=== PATIENT | female | born 1950 | race Caucasian/White ===

== ENCOUNTER → 2017-03-31 | Outpatient (CLI) | payer MEDICARE, MEDICAID ==
--- NOTE | 2017-03-31 14:31 | WOMENS IMAGING REPORT ---
EXAM DESCRIPTION: TRANSVAGINAL ULTRASOUND COMPLETED DATE/TIME: 03/31/2017 2:06 pm REASON FOR STUDY: N95.0 Z12.31 ENCNTR SCREEN MAMMOGRAM FOR MALIGNANT NEOPLASM OF SELENA M81.0 AGE-REL ATED OSTEOPOROSIS W/O CURRENT PATHOLOGICAL FRAC N95.0 POSTMENOPAUSAL BLEEDING COMPARISON: None. TECHNIQUE: Dynamic and static grayscale images acquired of the pelvis via transvaginal approach and recorded on PACS. Additional selected color Doppler and spectral images recorded. LIMITATIONS: None. FINDINGS: UTERUS: Contour normal. No mass. ENDOMETRIAL STRIPE: No focal or generalized thickening. No masses. CERVIX: No nabothian cysts. RIGHT OVARY: No abnormal masses. RIGHT OVARY DOPPLER: Normal arterial vascular flow without evidence for torsion. LEFT OVARY: No abnormal masses. LEFT OVARY DOPPLER: Normal arterial vascular flow without evidence for torsion. FREE FLUID: None noted. OTHER: No other significant finding. MEASUREMENTS: UTERUS: 2.8 x 4.1 x 5.6 cm. ENDOMETRIAL STRIPE: 2 mm. RIGHT OVARY: 1.9 x 2.5 x 2.9 cm. LEFT OVARY: 1.7 x 1.7 x 2.3 cm. IMPRESSION: NORMAL TRANSVAGINAL PELVIC ULTRASOUND. TECHNICAL DOCUMENTATION: JOB ID: [id number] [employer]- All Rights Reserved
--- NOTE | 2017-03-31 14:32 | WOMENS IMAGING REPORT ---
EXAM DESCRIPTION: BONE DENSITY HIP/SPINE COMPLETED DATE/TIME: 03/31/2017 2:08 pm REASON FOR STUDY: M81.0 Z12.31 ENCNTR SCREEN MAMMOGRAM FOR MALIGNANT NEOPLASM OF SELENA M81.0 AGE-REL ATED OSTEOPOROSIS W/O CURRENT PATHOLOGICAL FRAC N95.0 POSTMENOPAUSAL BLEEDING COMPARISON: None. TECHNIQUE: Dual-Energy X-ray Absorptiometry (DEXA) of the AP Spine and Hip. LIMITATIONS: None. FINDINGS: LUMBAR SPINE: The bone mineral density (BMD) measured from L1-L4 in the AP projection correlates with a T-score of -3.8, which is osteoporosis as defined by the World Health Organization. HIP: The bone mineral density (BMD) measured in the left hip correlates with a T-score of -3.2, which is o steoporosis as defined by the World Health Organization. IMPRESSION: 1. LUMBAR SPINE: OSTEOPOROSIS. 2. HIP: OSTEOPOROSIS. COMMENT: The World Health Organization defines low BMD as follows: T-score: Normal: Greater than -1.0 Osteopenia: Between -1.0 and -2.5 Osteoporosis: Less than -2.5 without fractures Established osteoporosis: Less than -2.5 with fractures In general, you may wish to consider: Diagnosis Treatment Follow-up DEXA Normal BMD Prevention 2-3 years Osteopenia Prevention/Therapy 1-2 years Osteoporosis Therapy Yearly TECHNICAL DOCUMENTATION: JOB ID: [id number] [email or web address]- All Rights Reserved
--- NOTE | 2017-03-31 14:45 | WOMENS IMAGING REPORT ---
EXAM DESCRIPTION: BILAT SCREENING MAMMO W/CAD COMPLETED DATE/TIME: 03/31/2017 2:09 pm REASON FOR STUDY: Z12.31, ROUTINE SCREENING MAMMO Z12.31 ENCNTR SCREEN MAMMOGRAM FOR MALIGNANT NEOP LASM OF SELENA M81.0 AGE-RELATED OSTEOPOROSIS W/O CURRENT PATHOLOGICAL FRAC N95.0 POSTMENOPAUSAL BLEED ING COMPARISON: None. TECHNIQUE: Standard craniocaudal and mediolateral oblique views of each breast recorded using digita l acquisition. LIMITATIONS: None. FINDINGS: No masses, calcifications or architectural distortion. No areas of suspicion. Read with the assistance of CAD. .[facility] - R2 Cenova Version 1.3 .[facility] - R2 Cenova Version 1.3 .[facility] - R2 Cenova Version 2.4 .[facility] [place] R2 Cenova Version 2.4 .[facility] - R2 [employer] Version 9.2 IMPRESSION: NORMAL MAMMOGRAM. BIRADS 1. BREAST DENSITY: c. The breasts are heterogeneously dense, which may obscure small masses. BIRAD: 1 NEGATIVE RECOMMENDATION: ROUTINE SCREENING COMMENT: The patient has been notified of the results by letter per SA requirements. Additional no tification policies are in place for contacting patient with suspicious or incomplete findings. Quality ID #[id number]: The [employer] recommends an annual screening mammogram for women aged 40 years or over. This facility utilizes a reminder system to ensure that all patients receive reminder letters, and/or direct phone calls for appointments. This includes reminders for routine scr eening mammograms, diagnostic mammograms, or other Breast Imaging Interventions when appropriate. Th is patient will be placed in the appropriate reminder system. The [employer] (ACR) has developed recommendations for screening MRI of the breast s in certain patient populations, to be used in conjunction with mammography. Breast MRI surveillanc e may be appropriate for women with more than 20% lifetime risk of developing breast cancer as deter mined by genetic testing, significant family history of the disease, or history of mantle radiation f or Hodgkins Disease. ACR Practice Guidelines 2008. TECHNICAL DOCUMENTATION: FINDING NUMBER: (1) ASSESSMENT: (1) JOB ID: [id number] [employer]- All Rights Reserved
== END ==
LOC: WI 13:56
PROVIDERS: ATTEND Physician Assistant
DX: Z12.31 Encounter for screening mammogram for malignant neoplasm of breast (principal); M81.0 Age-related osteoporosis without current pathological fracture; N95.0 Postmenopausal bleeding
CPT/HCPCS: 77080; 76830; G0202; 77067

== ENCOUNTER 2018-12-02 01:17 | Emergency (ER) | payer MEDICARE, OTHER ==
[2018-12-02] MEDS ORDERED: NORMAL SALINE 1000 ML 1,000 ML IV ONE (02:08)
[2018-12-02 04:03] LABS: ABSOLUTE LYMPHOCYTES (AUTO) 0.2 10^3/uL (0.5-4.7); ABSOLUTE MONOCYTES (AUTO) 0.4 10^3/uL (0.1-1.4); ABSOLUTE NEUT (AUTO) 3.1 10^3/uL (1.7-8.2); BASOPHILS % (AUTO) 0.1 % (0-2); EOSINOPHILS % (AUTO) 0.1 % (0-6); HEMATOCRIT 39.4 % (36.0-47.0); HEMOGLOBIN 13.9 g/dL (12.0-15.5); LYMPHOCYTES % (AUTO) 5.2 % (13-45); MEAN CORPUSCULAR HEMOGLOBIN 34.9 pg (27.0-33.4); MEAN CORPUSCULAR HGB CONC 35.1 g/dL (32.0-36.0); MEAN CORPUSCULAR VOLUME 99 fl (80-97); MONOCYTES % (AUTO) 11.4 % (3-13); PLATELET COUNT 166 10^3/uL (150-450); RED BLOOD COUNT 3.97 10^6/uL (3.72-5.28); SEGMENTED NEUTROPHILS % (AUTO) 83.2 % (42-78); TOTAL CELLS COUNTED % (AUTO) 100 %; WHITE BLOOD COUNT 3.8 10^3/uL (4.0-10.5)
[2018-12-02] MEDS ORDERED: ONDANSETRON HCL INJ/PF 4 MG/2 ML SDV IV ONE (04:22)
[2018-12-02] MEDS ORDERED: ACETAMINOPHEN SUSP 160 MG/5 ML ORAL SYRING PO ONE (04:23)
[2018-12-02] MEDS ORDERED: KETOROLAC TROMETHAMINE INJ/PF 30 MG/1 ML SDV IV ONE (04:26)
--- NOTE | 2018-12-02 04:26 | ER Document Report ---
ED GI/ - General Chief Complaint: Nausea/Vomiting/Diarrhea Stated Complaint: NAUSEA Time Seen by Provider: 12/02/18 04:08 Primary Care Provider: JOHN TAYLOR PA [PHYSICIAN SUPERVISOR ENGRAVING] - Follow up as needed TRAVEL OUTSIDE OF THE [place] IN LAST 30 DAYS: No - HPI Notes: 12/02/18 04:23 Patient is a 68-year-old female that presents to the emergency department for chief complaint of nausea vomiting diarrhea and headache. Patient reports symptoms started yesterday. She reports multiple episodes of vomiting and diarrhea throughout today. She denies any associated abdominal pa in. She states she has been getting sweats and chills but has not taken her temperature. She denies any urinary complaints including dysuria and urinary frequency. 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 She is not on any active chemotherapy. She also endorses a generalized throbbing headache with no aggravating or relieving factors. She took Ultram about 1 hour ago with no relief. Past Medical History: Bone marrow cancer Past Surgical History: Lung tumor removal Social History: Denies drugs alcohol and tobacco Family History: Reviewed and noncontributory for presenting illness Allergies: Reviewed, see documented allergy list. REVIEW OF SYSTEMS: CONSTITUTIONAL : No fever chills diaphoresis No recent illness EENT: No vision changes No congestion No sore throat CARDIOVASCULAR: No chest pain No palpitations RESPIRATORY: No shortness of breath No cough No difficulty breathing GASTROINTESTINAL: no abdominal pain nausea vomiting diarrhea GENITOURINARY: No dysuria No hematuria No difficulty urinating MUSCULOSKELETAL: No back pain No leg pain No arm pain SKIN: No rashes No lesions LYMPHATIC: No swollen, enlarged glands. NEUROLOGICAL: No lightheadedness No headache No weakness No paresthesias PSYCHIATRIC: No anxiety No depression PHYSICAL EXAMINATION: Vital signs reviewed, nursing noted reviewed. GENERAL: Well-appearing, thin stature and in no acute distress. HEAD: Atraumatic, normocephalic. EYES: Eyes appear normal, extraocular movements intact, sclera anicteric, con junctiva are normal. ENT: nares patent, oropharynx clear without exudates. Dry mucous membranes. NECK: Normal range of motion, supple without lymphadenopathy LUNGS: Breath sounds clear to auscultation bilaterally and equal. No wheezes rales or rhonchi. HEART: Regular rate and rhythm without murmurs ABDOMEN: Soft, nontender, normoactive bowel sounds. No rebound, guarding, or rigidity. No masses appreciated. EXTREMITIES: Nontender, good range of motion, no pitting or edema. NEUROLOGICAL: No focal neurological deficits. Moves all extremities spontaneously Motor and sensory grossly intact on exam. PSYCH: Normal mood, normal affect. SKIN: Warm, Dry, normal turgor, no rashes or lesions noted on exposed skin 12/02/18 04:24 - Related Data Allergies/Adverse Reactions: No Known Allergies Allergy (Verified 12/02/18 04:25) Past Medical History - Social History Smoking Status: Never Smoker Family History: Reviewed & Not Pertinent Physical Exam - Vital signs Vitals: Temp Pulse Resp BP Pulse Ox 97.9 F 78 16 96/51 L 97 12/02/18 01:18 12/02/18 01:18 12/02/18 01:18 12/02/18 01:18 12/02/18 01:18 Course - Re-evaluation Re-evalutation: 12/02/18 04:26 Vitals reviewed. Nursing notes reviewed. Patient has dry mucous membranes and appears dehydrated. She was started on IV fluids and given Zofran and Toradol for symptomatic management. 12/02/18 05:22 Patient reevaluated. She states she has had some improvement of her symptoms. She has not had any emesis in the last 6 hours. She has not had any diarrhea in the emergency room. Patient has remained hemodynamically stable and afebrile. Her lab work shows a mild leukopenia at 3.8 but is otherwise unremarkable. She has no other Sirs criteria or signs of infection. She states she is not able to give us a urine sample but is not concerned about a urinary tract infection. Patient symptoms are consistent with viral gastroenteritis. I counseled her at length on hydration as well as return precautions. She will be given a pre scription for Zofran for symptomatic management at home. She will follow closely with her primary care doctor for reevaluation in the next few days. Laboratory 12/02/18 12/02/18 03:48 03:48 WBC 3.8 L RBC 3.97 Hgb 13.9 Hct 39.4 MCV 99 H MCH 34.9 H MCHC 35.1 RDW 12.0 Plt Count 166 Seg Neutrophils % 83.2 H Lymphocytes % 5.2 L Monocytes % 11.4 Eosinophils % 0.1 Basophils % 0.1 Absolute Neutrophils 3.1 Absolute Lymphocytes 0.2 L Absolute Monocytes 0.4 Absolute Eosinophils 0.0 Absolute Basophils 0.0 Sodium 139.9 Potassium 4.3 Chloride 104 Carbon Dioxide 27 Anion Gap 9 BUN 14 Creatinine 0.54 Est GFR ( Amer) > 60 Est GFR (Non-Af Amer) > 60 Glucose 116 H Calcium 9.0 Total Bilirubin 0.4 Direct Bilirubin 0.2 Neonat Total Bilirubin Not Reportable Neonat Direct Bilirubin Not Reportable Neonat Indirect Bili Not Reportable AST 35 ALT 27 Alkaline Phosphatase 43 Total Protein 6.9 Albumin 4.4 Lipase 63.1 - Vital Signs Vital signs: Temp Pulse Resp BP Pulse Ox 97.8 F 78 16 96/51 L 97 12/02/18 04:42 12/02/18 04:01 12/02/18 01:18 12/02/18 01:18 12/02/18 01:18 - Laboratory Result Diagrams: 12/02/18 03:48 12/02/18 03:48 Laboratory results interpreted by me: 12/02/18 12/02/18 03:48 03:48 WBC 3.8 L MCV 99 H MCH 34.9 H Seg Neutrophils % 83.2 H Lymphocytes % 5.2 L Absolute Lymphocytes 0.2 L Glucose 116 H Discharge - Discharge Clinical Impression: Nausea and vomiting Qualifiers: Vomiting type: unspecified Vomiting Intractability: non-intractable Qualified Code(s): R11.2 - Nausea with vomiting, unspecified Diarrhea Qualifiers: Diarrhea type: unspecified type Qualified Code(s): R19.7 - Diarrhea, uns pecified Condition: Stable Disposition: HOME, SELF-CARE Instructions: Gastroenteritis (adult) ([facility]) Additional Instructions: Please return to the emergency department if you have any worsening, or concern of your symptoms. Please return to the emergency department if you develop chest pain, difficulty breathing, severe abdominal pain, or ongoing vomiting. Please follow-up with your primary care physician in 2-3 days and any other recommended physicians. If prescribed, take all medications as directed. If you have any questions or concerns do not hesitate to return the emergency department for evaluation. Prescriptions: Ondansetron [Zofran Odt 4 mg Tablet] 1 tab PO Q4H PRN #15 tab.rapdis PRN Reason: For Nausea/Vomiting Referrals: JOHN TAYLOR PA [PHYSICIAN SUPERVISOR ENGRAVING] - Follow up in 3-5 days
[2018-12-02 04:34] LABS: ALANINE AMINOTRANSFERASE 27 U/L (9-52); ALBUMIN 4.4 g/dL (3.5-5.0); ALKALINE PHOSPHATASE 43 U/L (38-126); ANION GAP 9 (5-19); ASPARTATE AMINO TRANSFERASE 35 U/L (14-36); BILIRUBIN,DIRECT 0.2 mg/dL (0.0-0.4); BILIRUBIN,TOTAL 0.4 mg/dL (0.2-1.3); BLOOD UREA NITROGEN 14 mg/dL (7-20); CARBON DIOXIDE 27 mmol/L (22-30); CHLORIDE 104 mmol/L (98-107); GLUCOSE 116 mg/dL (75-110); LIPASE 63.1 U/L (23-300); POTASSIUM 4.3 mmol/L (3.6-5.0); SODIUM 139.9 mmol/L (137-145); TOTAL PROTEIN 6.9 g/dL (6.3-8.2)
[2018-12-02] MEDS ORDERED: ACETAMINOPHEN 325 MG TABLET PO ONE (05:20)
[2018-12-02] MEDS ORDERED: PROMETHAZINE HCL INJ 25 MG/1 ML VIAL IV ONE (05:20)
[2018-12-02 06:08] VITALS: BP 96/73
== END 2018-12-02 06:22 | disposition home or self-care (01) ==
LOC: ER 01:17
DX: R11.2 Nausea with vomiting, unspecified (principal); R19.7 Diarrhea, unspecified; R51 Headache; R61 Generalized hyperhidrosis; R68.83 Chills (without fever); D72.829 Elevated white blood cell count, unspecified; Z85.830 Personal history of malignant neoplasm of bone
CPT/HCPCS: 99283; 96361; 96374; 96375; 36415; 83690; 85025; 80053; A9270; J1885; J2550; J2405; J7030

== ENCOUNTER → 2019-04-06 | Outpatient (CLI) | payer MEDICARE, OTHER ==
--- NOTE | 2019-04-06 14:12 | WOMENS IMAGING REPORT ---
EXAM DESCRIPTION: BONE DENSITY HIP/SPINE COMPLETED DATE/TIME: 04/06/2019 2:04 pm REASON FOR STUDY: M81.0 AGE RELATED OSTEOPOROSIS WITHOUT CURRENT PATHOLOGICAL FRACTURE M81.0 AGE-RE LATED OSTEOPOROSIS W/O CURRENT PATHOLOGICAL FRAC COMPARISON: 03/31/2017 TECHNIQUE: Dual-Energy X-ray Absorptiometry (DEXA) of the AP Spine and Hip. LIMITATIONS: None. FINDINGS: LUMBAR SPINE: The bone mineral density (BMD) measured from L1-L4 in the AP projection correlates with a T-score of -2.9, which is osteoporosis as defined by the World Health Organization. HIP: The bone mineral density (BMD) measured in the left hip correlates with a T-score of -2.8 in the femo ral neck, which is osteoporosis as defined by the World Health Organization. IMPRESSION: 1. LUMBAR SPINE: Osteoporosis 2. HIP: Osteoporosis COMMENT: The World Health Organization defines low BMD as follows: T-score: Normal: Greater than -1.0 Osteopenia: Between -1.0 and -2.5 Osteoporosis: Less than -2.5 without fractures Established osteoporosis: Less than -2.5 with fractures In general, you may wish to consider: Diagnosis Treatment Follow-up DEXA Normal BMD Prevention 2-3 years Osteopenia Prevention/Therapy 1-2 years Osteoporosis Therapy Yearly TECHNICAL DOCUMENTATION: JOB ID: [id number]- All Rights Reserved Reading location - IP/workstation name: [email or web address]
== END ==
LOC: WI 13:45
PROVIDERS: ATTEND Physician Assistant
DX: M81.0 Age-related osteoporosis without current pathological fracture (principal)
CPT/HCPCS: 77080

== ENCOUNTER → 2019-12-01 | Outpatient (CLI) | payer MEDICARE, OTHER ==
--- NOTE | 2019-12-02 11:39 | WOMENS IMAGING REPORT ---
EXAM DESCRIPTION: 3D SCREENING MAMMO BILAT COMPLETED DATE/TIME: 12/02/2019 11:14 am REASON FOR STUDY: Z12.31 ENCOUNTER FOR SCREENING MAMMOGRAM FOR MALIGNANT NEOPLASM OF BREAST Z12.31 ENCNTR SCREEN MAMMOGRAM FOR MALIGNANT NEOPLASM OF SELENA COMPARISON: 2016 EXAM PARAMETERS: Views: Standard craniocaudal and mediolateral oblique views of each breast recorded using digital acquisition and breast tomosynthesis. Read with the assistance of CAD. .COUNT INCLUDES THE [facility] [place] [employer] Version 9.2 LIMITATIONS: None. FINDINGS: No suspicious masses, suspicious calcifications or architectural distortion. No areas of c oncern. IMPRESSION: NEGATIVE MAMMOGRAM. BIRADS 1. BREAST DENSITY: b. There are scattered areas of fibroglandular density. BIRAD: ASSESSMENT: 1 NEGATIVE RECOMMENDATION: ROUTINE SCREENING COMMENT: The patient has been notified of the results by letter per MQSA requirements. Additional no tification policies are in place for contacting patient with suspicious or incomplete findings. Quality ID #225: The [employer] recommends an annual screening mammogram for women aged 40 years or over. This facility utilizes a reminder system to ensure that all patients receive reminder letters, and/or direct phone calls for appointments. This includes reminders for routine scr eening mammograms, diagnostic mammograms, or other Breast Imaging Interventions when appropriate. Th is patient will be placed in the appropriate reminder system. TECHNICAL DOCUMENTATION: FINDING NUMBER: (1) ASSESSMENT: (1) JOB ID: [id number] 2010 [employer]- All Rights Reserved Reading location - IP/workstation name: [email or web address]
== END ==
LOC: WI 13:34
PROVIDERS: ATTEND Physician Assistant
DX: Z12.31 Encounter for screening mammogram for malignant neoplasm of breast (principal)
CPT/HCPCS: 77063; 77067

== ENCOUNTER 2020-06-15 16:36 | Observation (INO) | payer MEDICARE, OTHER ==
--- NOTE | 2020-06-15 17:02 | ER Document Report ---
ED General - General Chief Complaint: Altered Mental Status Stated Complaint: AMS Time Seen by Provider: 06/15/20 16:47 Primary Care Provider: HOLLY SAL PA [NO LOCAL MD] - Follow up as needed Information source: Emergency Med Personnel Cannot obtain history due to: Altered mental status TRAVEL OUTSIDE OF THE [place] IN LAST 30 DAYS: No - HPI Notes: Patient presents from the pain management clinic. Per EMS, she was sent over for tachycardia and increased confusion from baseline according to the nurse practitioner there. Patient is uncooperative with questioning. I am unable to obtain a further history. She appears confused and can not tell me where she is but is oriented to person and time. - Related Data Allergies/Adverse Reactions: No Known Allergies Allergy (Verified 12/02/18 04:25) Past Medical History - General Cannot obtain history due to: Altered mental status - Social History Smoking Status: Unknown if Ever Smoked Family History: Reviewed & Not Pertinent Renal/ Medical History: Denies: Hx Peritoneal Dialysis Review of Systems - Review of Systems -: Yes ROS unobtainable due to patient's medical condition Physical Exam - Vital signs Vitals: Temp Pulse Resp BP Pulse Ox 99.0 F 94 14 121/75 100 06/15/20 17:25 06/15/20 17:25 06/15/20 17:25 06/15/20 17:25 06/15/20 17:25 - General General appearance: Alert, Other - Alert but will not respond to questioning. Will follow simple commands. In distress: None - HEENT Head: Normocephalic, Atraumatic Eyes: Normal Conjunctiva: Normal Ears: Normal Mucous membranes: Dry Neck: Normal - Respiratory Respiratory status: No respiratory distress. No: Respiratory distress, Retractions, Tachypnea Breath sounds: Normal. No: Decreased air movement, Wheezing Chest palpation: Normal - Cardiovascular Rhythm: Regular Heart sounds: Normal auscultation - Abdominal Inspection: Normal Distension: No distension Tenderness: No: Nontender - Back Back: Normal Notes: No step offs palpated. No lesions. States she has chronic pain in the lower back which is not new. - Extremities General upper extremity: Normal inspection General lower extremity: Normal inspection Notes: Patient moves all extremites. - Neurological Orientation: Disoriented to place Speech: Normal - Psychological Associated symptoms: Restlessness, Uncooperative - Skin Skin Temperature: Warm Skin Moisture: Dry Skin Color: Normal Course - Re-evaluation Re-evalutation: 06/15/20 17:12 Patient uncooperative with questioning. She is able to tell me her name and what year it is. Patient is able to move her extremities. Nurse reports that patient was sitting on the edge of the bed and then leaned forward onto the ground. She tried to get up by herself but could not. States that she drives a car but does not always ambulate. It is difficult to obtain a history from her as she seems to be confused. On reassessment, patient is becoming more cooperative and answering questions. The confusion seems to be intermittent. She does appear to be very fatigued. Patient states she has not been sleeping well. She tells me that she lives at home with her who is currently out of town. She does think she has any sick symptoms. Denies taking any extra medicines. From record, she takes gabapentin and tramadol. She does not think that she took more doses than appropriate. Her lab work is significant for dehydration. Was given fluids. I did discuss with the hospitalist for admission for altered mental status and he was in agreement. Patient is also agreeable to this. 06/15/20 19:11ll 06/15/20 19:29 06/15/20 20:14 - Vital Signs Vital signs: Temp Pulse Resp BP Pulse Ox 99.0 F 94 14 121/75 100 06/15/20 17:25 06/15/20 18:00 06/15/20 18:00 06/15/20 18:00 06/15/20 18:00 - Laboratory Result Diagrams: 06/15/20 17:37 06/15/20 17:37 Laboratory results interpreted by me: 06/15/20 06/15/20 06/15/20 17:37 17:37 18:48 WBC 3.5 L MCV 99 H MCH 34.6 H Dupage % (Auto) 17.2 H Carbon Dioxide 12 L Anion Gap 23 H Calcium 10.3 H AST 37 H Albumin 5.2 H Urine Protein 100 H Urine Ketones 80 H Urine Blood SMALL H Leukocyte Esterase Rfl MODERATE H - EKG Interpretation by [place] EKG shows normal: Sinus rhythm Rate: Normal When compared to previous EKG there are: Previous EKG unavailable Additional EKG results interpreted by me: 06/15/20 17:41 Sinus rhythm at a rate of 95. QTc 423. Possible LVH. No acute ST changes. No previous EKG available for comparison. Discharge - Discharge Clinical Impression: Dehydration Altered mental status Qualifiers: Altered mental status type: unspecified Qualified Code(s): R41.82 - Altered mental status, unspecified Condition: Fair Disposition: ADMITTED OBSERVATION Admitting Provider: Paulette (Hospitalist) Unit Admitted: Medical Floor Referrals: HOLLY SAL PA [NO LOCAL MD] - Follow up as needed
--- NOTE | 2020-06-15 17:38 | RADIOLOGY REPORT (SQ) ---
EXAM DESCRIPTION: CHEST SINGLE VIEW IMAGES COMPLETED DATE/TIME: 06/15/2020 5:23 pm REASON FOR STUDY: tachycardia COMPARISON: None. EXAM PARAMETERS: NUMBER OF VIEWS: One view. TECHNIQUE: Single frontal radiographic view of the chest acquired. RADIATION DOSE: NA LIMITATIONS: None. FINDINGS: LUNGS AND PLEURA: Hyperexpansion of the lungs. Cannot exclude 2 right upper lobe pulmonar y nodules. The larger measures about 3 x 2 cm and the smaller 2 cm in diameter. MEDIASTINUM AND HILAR STRUCTURES: No masses. Contour normal. HEART AND VASCULAR STRUCTURES: Heart normal in size. Normal vasculature. BONES: No acute findings. HARDWARE: Injection port on the right. OTHER: No other significant finding. IMPRESSION: Chronic lung changes. Cannot exclude 2 right upper lobe pulmonary nodules. Recommend C T scan with contrast. TECHNICAL DOCUMENTATION: JOB ID: [id number] 2010 [employer]- All Rights Reserved Reading location - IP/workstation name: [email or web address]
[2020-06-15 18:02] LABS: ABSOLUTE LYMPHOCYTES (AUTO) 0.7 10^3/uL (0.5-4.7); ABSOLUTE MONOCYTES (AUTO) 0.6 10^3/uL (0.1-1.4); ABSOLUTE NEUT (AUTO) 2.2 10^3/uL (1.7-8.2); BASOPHILS % (AUTO) 0.7 % (0-2); EOSINOPHILS % (AUTO) 0.2 % (0-6); HEMOGLOBIN 15.3 g/dL (12.0-15.5); LYMPHOCYTES % (AUTO) 20.1 % (13-45); MEAN CORPUSCULAR HEMOGLOBIN 34.6 pg (27.0-33.4); MEAN CORPUSCULAR HGB CONC 34.9 g/dL (32.0-36.0); MEAN CORPUSCULAR VOLUME 99 fl (80-97); MONOCYTES % (AUTO) 17.2 % (3-13); PLATELET COUNT 219 10^3/uL (150-450); RED BLOOD COUNT 4.43 10^6/uL (3.72-5.28); RED CELL DISTRIBUTION WIDTH 12.7 % (11.5-14.0); SEGMENTED NEUTROPHILS % (AUTO) 61.8 % (42-78); TOTAL CELLS COUNTED % (AUTO) 100 %; WHITE BLOOD COUNT 3.5 10^3/uL (4.0-10.5)
[2020-06-15 18:09] LABS: ALBUMIN 5.2 g/dL (3.5-5.0); ALKALINE PHOSPHATASE 51 U/L (38-126); ASPARTATE AMINO TRANSFERASE 37 U/L (14-36); BILIRUBIN,DIRECT 0.3 mg/dL (0.0-0.4); BILIRUBIN,TOTAL 1.1 mg/dL (0.2-1.3); BLOOD UREA NITROGEN 19 mg/dL (7-20); CALCIUM 10.3 mg/dL (8.4-10.2); GLUCOSE 79 mg/dL (75-110); POTASSIUM 4.3 mmol/L (3.6-5.0); TOTAL PROTEIN 8.1 g/dL (6.3-8.2)
[2020-06-15 18:14] LABS: CARBON DIOXIDE 12 mmol/L (22-30); CHLORIDE 107 mmol/L (98-107)
[2020-06-15 18:18] LABS: ANION GAP 23 (5-19)
[2020-06-15] MEDS ORDERED: NORMAL SALINE 1000 ML 1,000 ML IV ONE (18:27)
--- NOTE | 2020-06-15 18:28 | RADIOLOGY REPORT (SQ) ---
EXAM DESCRIPTION: CT HEAD WITHOUT IMAGES COMPLETED DATE/TIME: 06/15/2020 5:00 pm REASON FOR STUDY: AMS COMPARISON: None. TECHNIQUE: Axial images acquired through the brain without intravenous contrast. Images reviewed wi th bone, brain and subdural windows. Additional sagittal and coronal reconstructions were generated. Images stored on PACS. All CT scanners at this facility use dose modulation, iterative reconstruction, and/or weight based d osing when appropriate to reduce radiation dose to as low as reasonably achievable (ALARA). [facility]: Dose Right [facility]: CareDose [facility]: Dose Right [facility]: Teradose 4D [facility]: Fluentify RADIATION DOSE: CT Rad equipment meets quality standard of care and radiation dose reduction techniq ues were employed. CTDIvol: 53.2 mGy. DLP: 1070 mGy-cm. mGy. LIMITATIONS: None. FINDINGS: VENTRICLES: Normal size and contour. CEREBRUM: No masses. No hemorrhage. No midline shift. No evidence for acute infarction. Normal gra y-white matter differentiation. There is intracranial atherosclerosis. CEREBELLUM: No masses. No hemorrhage. No alteration of density. No evidence for acute infarction. EXTRAAXIAL SPACES: No fluid collections. No masses. ORBITS AND GLOBE: No intra- or extraconal masses. Normal contour of globe without masses. CALVARIUM: No fracture. PARANASAL SINUSES: No fluid or mucosal thickening. SOFT TISSUES: No mass or hematoma. OTHER: No other significant finding. IMPRESSION: No acute intracranial hemorrhage, mass, or evidence of acute territorial infarct. There is intracranial atherosclerosis. EVIDENCE OF ACUTE STROKE: NO. COMMENT: Quality ID # [id number]: Final reports with documentation of one or more dose reduction techniques (e.g., Automated exposure control, adjustment of the mA and/or kV according to patient size, use of iterative reconstruction technique) TECHNICAL DOCUMENTATION: JOB ID: [id number] 2010 [employer]- All Rights Reserved Reading location - IP/workstation name: [email or web address]
[2020-06-15] MEDS ORDERED: ACETAMINOPHEN 325 MG TABLET PO ONE (18:32)
[2020-06-15 19:19] LABS: APPEARANCE,URINE SLIGHTLY-CLOUDY; BILIRUBIN,URINE NEGATIVE (NEGATIVE); COLOR,URINE YELLOW; GLUCOSE, URINE NEGATIVE (NEGATIVE); KETONES,URINE 80 mg/dL (NEGATIVE); PROTEIN,URINE 100 mg/dL (NEGATIVE); URINE SPECIFIC GRAVITY 1.023; UROBILINOGEN,URINE NEGATIVE mg/dL (<2.0)
[2020-06-15] MEDS ORDERED: MAGNESIUM HYDROXIDE SUSP 30 ML UDCUP PO PRN (20:15)
[2020-06-15] MEDS ORDERED: ONDANSETRON HCL INJ/PF 4 MG/2 ML SDV IV PRN (20:15)
[2020-06-15] MEDS ORDERED: MAG HYDROX/AL HYDROX/SIMETH SUSP 30 ML UDCUP PO PRN (20:15)
[2020-06-15] MEDS ORDERED: MORPHINE SULFATE 10 MG/ML INJ IV PRN ×4 (20:19→20:25)
[2020-06-15] MEDS ORDERED: LORAZEPAM INJ 2 MG/1 ML VIAL IV PRN (20:19)
[2020-06-15] MEDS ORDERED: ACETAMINOPHEN 325 MG TABLET PO PRN (20:19)
[2020-06-15] MEDS ORDERED: GUAIFENESIN SYRP 200 MG/10 ML UDC PO PRN (20:19)
[2020-06-15] MEDS ORDERED: ACETAMINOPHEN 650 MG SUPP.RECT PR PRN (20:19)
--- NOTE | 2020-06-15 20:27 | EKG REPORT ---
SEVERITY:- ABNORMAL ECG - SINUS RHYTHM LEFT ATRIAL ABNORMALITY PROBABLE LEFT VENTRICULAR HYPERTROPHY NONSPECIFIC ST-T CHANGES- INFERIOR LEADS : Confirmed by: Qamar Richards MD 15-Jun-2020 20:26:25
[2020-06-15] MEDS: DEXTROSE 5%-LACTATED RINGERS 1,000 ML IV PRN (20:58)
[2020-06-15] MEDS ORDERED: FAMOTIDINE 20 MG TABLET PO SCH (22:00)
[2020-06-15 22:07] LABS: ARTERIAL BLOOD BASE EXCESS -13.5 mmol/L; ARTERIAL BLOOD FIO2 ROOM AIR; ARTERIAL BLOOD H2CO3 0.92 mmol/L (1.05-1.35); ARTERIAL BLOOD HCO3 12.7 mmol/L (20-24); ARTERIAL BLOOD O2 SATURATION 96.5 % (94-98); ARTERIAL BLOOD PCO2 30.6 mmHg (35-45); ARTERIAL BLOOD PH 7.24 (7.35-7.45); ARTERIAL BLOOD TOTAL CO2 13.6 mmol/L (21-25)
[2020-06-15 22:23] LABS: CREATINE KINASE MB 2.99 ng/mL (<4.55)
[2020-06-15 22:24] LABS: TROPONIN I < 0.012 ng/mL
[2020-06-15] MEDS: HEPARIN SOD (PORCINE) 5,000 UNIT/ML 1 ML VIAL SUBCUT SCH (22:26)
[2020-06-15] MEDS: FAMOTIDINE 20 MG TABLET PO SCH (22:26)
[2020-06-16] MEDS: HEPARIN SOD (PORCINE) 5,000 UNIT/ML 1 ML VIAL SUBCUT SCH ×3 (05:25→22:26)
--- NOTE | 2020-06-16 05:44 | PDOC H&P ---
History of Present Illness Admission Date/PCP: 06/15/2020 19:49 HOLLY SAL PA Patient complains of: Altered mental status History of Present Illness: JOANA MCDUFFIE is a 70 year old female who presented the emergency room via EMS with acute altered mental status. Patient was sent to the emergency room by her pain management provider for altered mental status (confusion) observed during her office visit today. At the time of my evaluation the patient is very paranoid and confused and is this unable to provide input into her medical history. In the emergency room patient was noted to be lethargic, confused, experiencing generalized weakness and appeared clinically cachectic and de hydrated. No obvious source of the patient's acute mental status change was identified and she was subsequently admitted to the hospital, on observation status, for further evaluation and treatment. Past Medical History Past Medical History: Due to the patient's altered mental status information provided here is taken from the best available reliable source. Cardiac Medical History: Denies: Coronary Artery Disease, Hypertension Pulmonary Medical History: Denies: Asthma, Chronic Obstructive Pulmonary Disease (COPD) EENT Medical History: Denies: Cataracts, Ears - Hearing aids Neurological Medical History: Denies: Hemorrhagic CVA, Ischemic CVA Endocrine Medical History: Denies: Diabetes Mellitus Type 1, Diabetes Mellitus Type 2 Renal/ Medical History: Denies: Chronic Kidney Disease, Nephrolithiasis Malignancy Medical History: Reports: Other - Bone marrow cancer GI Medical History: Denies: Cirrhosis, Hepatitis Musculoskeltal Medical History: Denies: Arthritis, Gout Skin Medical History: Denies: Eczema, Psoriasis Psychiatric Medical History: Denies: Alcohol Dependency, Substance Abuse, Tobacco Dependency Traumatic Medical History: Reports: None Hematology: Denies: Anemia, Bleeding Tendencies Infectious Medical History: Reports: None Past Surgical History Past Surgical History: Due to the patient's altered mental status information provided here is taken from the best available reliable source. Past Surgical History: Reports: Other - Lung tumor excision, bone marrow biopsy Social History Information Source: [facility] Records Lives with: Spouse/Significant other Smoking Status: Never Smoker Electronic Cigarette use?: No Frequency of Alcohol Use: None Hx Recreational Drug Use: No Drugs: None Hx Prescription Drug Abuse: No Past Social History Note: Due to the patient's altered mental status information provided here is taken from the best available reliable source. - Advance Directive Resuscitation Status: Full Code Surrogate healthcare decision maker:: Cristobaltonio Mcduffie Family History Family History: Other - No family history is available Family History: Due to the patient's altered mental status information provided here is taken from the best available reliable source. Parental Family History Reviewed: No Children Family History Reviewed: No Sibling(s) Family History Reviewed.: No Medication/Allergy Home Medications: Gabapentin [Neurontin 300 mg Capsule] 300 mg PO QID 06/15/20 Tramadol HCl [Ultram 50 mg Tablet] 100 mg PO Q8 MDD 6 TABS 06/15/20 Allergies/Adverse Reactions: No Known Allergies Allergy (Verified 12/02/18 04:25) Review of Systems ROS unobtainable: Due to mental status - Acute altered mental status with leth argy, confusion and generalized weakness Physical Exam Vital Signs: Temp Pulse Resp BP Pulse Ox 99.0 F 94 14 121/75 100 06/15/20 17:25 06/15/20 18:00 06/15/20 18:00 06/15/20 18:00 06/15/20 18:00 Intake & Output 06/13/20 06/14/20 06/15/20 23:59 23:59 23:59 Weight 38.5 kg General appearance: PRESENT: no acute distress, thin - Cachectic, other - Confused, paranoid Head exam: PRESENT: atraumatic, normocephalic Eye exam: PRESENT: conjunctiva pink. ABSENT: conjunctival injection, scleral icterus Ear exam: PRESENT: normal external ear exam. ABSENT: bleeding, drainage Mouth exam: PRESENT: dry mucosa, neck supple Neck exam: ABSENT: thyromegaly, tracheal deviation Respiratory exam: PRESENT: clear to auscultation ivan, symmetrical, unlabored Cardiovascular exam: PRESENT: RRR. ABSENT: clicks, gallop, rubs Pulses: PRESENT: normal radial pulses, normal dorsalis pedis pul Vascular exam: PRESENT: normal capillary refill. ABSENT: pallor GI/Abdominal exam: PRESENT: normal bowel sounds, soft Rectal exam: PRESENT: deferred Extremities exam: ABSENT: joint swelling, pedal edema Musculoskeletal exam: ABSENT: deformity, dislocation Neurological exam: PRESENT: altered - Lethargic and confused, CN II-XII grossly intact - To gross exam Psychiatric exam: PRESENT: anxious, flat affect, other - Paranoid and confused Focused psych exam: PRESENT: paranoid Skin exam: PRESENT: dry, intact, warm. ABSENT: jaundice, rash, urticaria Results Laboratory Results: 06/15/20 17:37 06/15/20 17:37 06/15/20 06/15/20 06/15/20 17:37 17:37 18:48 WBC 3.5 L RBC 4.43 Hgb 15.3 Hct 44.0 MCV 99 H MCH 34.6 H MCHC 34.9 RDW 12.7 Plt Count 219 Seg Neutrophils % 61.8 Sodium 141.8 Potassium 4.3 Chloride 107 Carbon Dioxide 12 L Anion Gap 23 H BUN 19 Creatinine 0.85 Est GFR ( Amer) > 60 Glucose 79 Calcium 10.3 H Total Bilirubin 1.1 AST 37 H Alkaline Phosphatase 51 Total Protein 8.1 Albumin 5.2 H Urine Color YELLOW Urine Appearance SLIGHTLY-CLOUDY Urine pH 5.0 Ur Specific [place] 1.023 Urine Protein 100 H Urine Glucose (UA) NEGATIVE Urine Ketones 80 H Urine Blood SMALL H Urine RBC (Auto) 1 06/15/20 17:37 Troponin I < 0.012 Impressions: Chest X-Ray 06/15/20 17:01 IMPRESSION: Chronic lung changes. Cannot exclude 2 right upper lobe pulmonary nodules. Recommend CT scan with contrast. 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 She will be treated with IV fluids utilizing D5 lactated Ringer's at 125 mL/h. She will receive a regular diet. Neurochecks will be performed every 4 hours. She will receive Ativan 1 mg IV every 4 hours as needed for anxiety or restlessness. She will receive morphine sulfate 2 to 4 mg IV every 2 hours as needed for pain. CBCs, metabolic profiles, arterial and/or venous blood gases and additional laboratory and/or radiographic evaluations will be obtained as appropriate. Case management will be consulted. A registered dietitian will be consulted. - Time Time Spent with patient: Less than 15 minutes Medications reviewed and adjusted accordingly: Yes Anticipated Discharge Disposition: Home with Home Health Anticipated Discharge Timeframe: within 24 hours - Inpatient Certification Based on my medical assessment, after consideration of the patient's comorbidities, presenting symptoms, or acuity I expect that the services needed warrant INPATIENT care.: No I certify that my determination is in accordance with my understanding of Medicare's requirements for reasonable and necessary INPATIENT services [42 CFR 412.3e].: No Medical Necessity: Need Close Monitoring Due to Risk of Patient Decompensation, Need For IV Fluids, Need for Neurological Checks, Risk of Complication if Not Cared For in Hospital
[2020-06-16 07:18] LABS: HEMATOCRIT 35.1 % (36.0-47.0); MEAN CORPUSCULAR HGB CONC 35.3 g/dL (32.0-36.0); MEAN CORPUSCULAR VOLUME 99 fl (80-97); PLATELET COUNT 159 10^3/uL (150-450); RED BLOOD COUNT 3.54 10^6/uL (3.72-5.28); RED CELL DISTRIBUTION WIDTH 12.6 % (11.5-14.0)
[2020-06-16 07:19] LABS: HEMOGLOBIN 12.4 g/dL (12.0-15.5)
[2020-06-16 07:26] LABS: ANION GAP 9 (5-19); BLOOD UREA NITROGEN 13 mg/dL (7-20); CALCIUM 9.3 mg/dL (8.4-10.2); CHLORIDE 112 mmol/L (98-107); GLUCOSE 159 mg/dL (75-110); PHOSPHORUS 2.1 mg/dL (2.5-4.5)
[2020-06-16 07:34] LABS: CARBON DIOXIDE 22 mmol/L (22-30)
[2020-06-16 07:36] LABS: TROPONIN I < 0.012 ng/mL
[2020-06-16] MEDS: DOCUSATE SODIUM 100 MG CAPSULE PO SCH ×2 (09:35→17:54)
--- NOTE | 2020-06-16 13:36 | PDOC PROGRESS REPORT ---
Subjective Progress Note for:: 06/16/20 Subjective:: Patient is a 70-year-old female who presented to the ED via EMS with acute altered mental status. At the time of my evaluation the patient is teary, confused, and able to provide minimal input into her medical history. When asked who her primary care provider is she said that she does not know. She does note a history of lung tumor excision but is unable to tell me the hospital it was performed. I would like to get an old CXR to compare to current. We will continu e with IV fluids and monitor patient progress. Reason For Visit: DEHYDRATION,ALTERED MENTAL STATUS Physical Exam Vital Signs: Temp Pulse Resp BP Pulse Ox 97.8 F 68 12 106/47 L 100 06/16/20 09:37 06/16/20 08:51 06/16/20 08:51 06/16/20 08:51 06/16/20 08:51 Intake & Output 06/15/20 06/16/20 06/17/20 06:59 06:59 06:59 Intake Total 1000 Balance 1000 Weight 39.7 kg General appearance: PRESENT: thin - cachectic, other - Patient is tearful on exam. Head exam: PRESENT: atraumatic, normocephalic Eye exam: PRESENT: EOMI, PERRLA. ABSENT: scleral icterus Ear exam: PRESENT: normal external ear exam. ABSENT: bleeding, drainage Mouth exam: PRESENT: dry mucosa, tongue midline Neck exam: ABSENT: lymphadenopathy, tenderness Respiratory exam: PRESENT: clear to auscultation ivan, symmetrical. ABSENT: tachypnea, unlabored Cardiovascular exam: PRESENT: RRR, +S1, +S2. ABSENT: diastolic murmur, systolic murmur Vascular exam: PRESENT: normal capillary refill GI/Abdominal exam: PRESENT: normal bowel sounds, soft. ABSENT: tenderness Rectal exam: PRESENT: deferred Extremities exam: PRESENT: full ROM. ABSENT: pedal edema Musculoskeletal exam: ABSENT: deformity, dislocation Neurological exam: PRESENT: altered - confused, oriented to person, oriented to place Psychiatric exam: PRESENT: flat affect, other - Teary on exam Focused psych exam: PRESENT: paranoid Skin exam: PRESENT: dry, intact, warm. ABSENT: erythema, jaundice Results Laboratory Results: 06/16/20 06:25 06/16/20 06:25 06/15/20 06/15/20 06/15/20 17:37 17:37 18:48 WBC 3.5 L RBC 4.43 Hgb 15.3 Hct 44.0 MCV 99 H MCH 34.6 H MCHC 34.9 RDW 12.7 Plt Count 219 Seg Neutrophils % 61.8 Carbonic Acid HCO3/H2CO3 Ratio ABG pH ABG pCO2 ABG pO2 ABG HCO3 ABG O2 Saturation ABG Base Excess FiO2 Sodium 141.8 Potassium 4.3 Chloride 107 Carbon Dioxide 12 L Anion Gap 23 H BUN 19 Creatinine 0.85 Est GFR ( Amer) > 60 Glucose 79 Calcium 10.3 H Phosphorus Magnesium Total Bilirubin 1.1 AST 37 H Alkaline Phosphatase 51 Total Protein 8.1 Albumin 5.2 H TSH Urine Color YELLOW Urine Appearance SLIGHTLY-CLOUDY Urine pH 5.0 Ur Specific [place] 1.023 Urine Protein 100 H Urine Glucose (UA) NEGATIVE Urine Ketones 80 H Urine Blood SMALL H Urine RBC (Auto) 1 06/15/20 06/16/20 06/16/20 21:50 06:25 06:25 WBC 3.0 L RBC 3.54 L Hgb 12.4 D Hct 35.1 L MCV 99 H MCH 35.0 H MCHC 35.3 RDW 12.6 Plt Count 159 Seg Neutrophils % Carbonic Acid 0.92 L HCO3/H2CO3 Ratio 13:1 ABG pH 7.24 L ABG pCO2 30.6 L ABG pO2 99.0 ABG HCO3 12.7 L ABG O2 Saturation 96.5 ABG Base Excess -13.5 FiO2 ROOM AIR Sodium 143.0 Potassium 4.0 Chloride 112 H Carbon Dioxide 22 D Anion Gap 9 BUN 13 Creatinine 0.56 Est GFR ( Amer) > 60 Glucose 159 H Calcium 9.3 Phosphorus 2.1 L Magnesium 1.9 Total Bilirubin AST Alkaline Phosphatase Total Protein Albumin TSH Urine Color Urine Appearance Urine pH Ur Specific [place] Urine Protein Urine Glucose (UA) Urine Ketones Urine Blood Urine RBC (Auto) 06/16/20 06:25 WBC RBC Hgb Hct MCV MCH MCHC RDW Plt Count Seg Neutrophils % Carbonic Acid HCO3/H2CO3 Ratio ABG pH ABG pCO2 ABG pO2 ABG HCO3 ABG O2 Saturation ABG Base Excess FiO2 Sodium Potassium Chloride Carbon Dioxide Anion Gap BUN Creatinine Est GFR ( Amer) Glucose Calcium Phosphorus Magnesium Total Bilirubin AST Alkaline Phosphatase Total Protein Albumin TSH 1.32 Urine Color Urine Appearance Urine pH Ur Specific [place] Urine Protein Urine Glucose (UA) Urine Ketones Urine Blood Urine RBC (Auto) 06/15/20 06/15/20 06/15/20 17:37 21:23 21:23 Creatine Kinase 93 CK-MB (CK-2) 2.99 Troponin I < 0.012 < 0.012 06/16/20 06/16/20 06:25 06:25 Creatine Kinase 115 CK-MB (CK-2) 3.00 Troponin I < 0.012 Impressions: Chest X-Ray 06/15/20 17:01 IMPRESSION: Chronic lung changes. Cannot exclude 2 right upper lobe pulmonary nodules. Recommend CT scan with contrast. Assessment and Plan - Diagnosis (1) Acute encephalopathy Is this a current diagnosis for this admission?: Yes Plan: I suspect her current state will improve significantly with fluids. Continue with IV D5 lactated Ringer's at 125mL/h. Continue with Ativan for anxiety. Will continue to monitor with routine neuro checks, metabolic profiles and additional evaluations as appropriate. (2) Leukopenia Qualifiers: Leukopenia type: unspecified Qualified Code(s): D72.819 - Decreased white blood cell count, unspecified Is this a current diagnosis for this admission?: Yes Plan: Patient has history of bone marrow malignancy treated with chemotherapy. Reviewed labs from pervious visit on 12/02/2018, WBC 3.8 at that time. Will continue to monitor. 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 Per patient she is in remission. (4) Protein-calorie malnutrition, moderate Is this a current diagnosis for this admission?: Yes Plan: Registered dietitian was consulted. Will continue with regular diet. - Time Time Spent with patient: 15-24 minutes Medications reviewed and adjusted accordingly: Yes Anticipated Discharge Disposition: Home with Home Health Anticipated Discharge Timeframe: within 24 hours
[2020-06-16 13:57] LABS: CREATINE KINASE MB 3.29 ng/mL (<4.55)
[2020-06-16 14:01] LABS: TROPONIN I < 0.012 ng/mL
[2020-06-16] MEDS: GABAPENTIN 300 MG CAPSULE PO SCH ×3 (15:17→22:27)
[2020-06-16] MEDS: DEXTROSE 5%-LACTATED RINGERS 1,000 ML IV PRN (15:18)
[2020-06-16] MEDS: FAMOTIDINE 20 MG TABLET PO SCH (22:27)
[2020-06-17] MEDS: HEPARIN SOD (PORCINE) 5,000 UNIT/ML 1 ML VIAL SUBCUT SCH ×2 (06:44→13:18)
[2020-06-17] MEDS: GABAPENTIN 300 MG CAPSULE PO SCH ×3 (10:28→17:09)
[2020-06-17] MEDS: DOCUSATE SODIUM 100 MG CAPSULE PO SCH ×2 (10:29→17:12)
[2020-06-17] MEDS ORDERED: RINGERS SOLUTION,LACTATED 1,000 ML IV PRN (12:11)
--- NOTE | 2020-06-17 12:20 | PDOC DISCHARGE SUMMARY ---
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 Is this a current diagnosis for this admission?: Yes (4) Protein-calorie malnutrition, moderate Is this a current diagnosis for this admission?: Yes - Additional Information Resuscitation Status: Full Code Discharge Diet: As Tolerated Discharge Activity: Activity As Tolerated, Slowly Increase Activity, Walk Frequently - To build your strength Referrals: HOLLY SAL PA [NO LOCAL MD] - Follow up as needed Home Medications: Gabapentin [Neurontin 300 mg Capsule] 300 mg PO QID 06/15/20 Tramadol HCl [Ultram 50 mg Tablet] 100 mg PO Q8 MDD 6 TABS 06/15/20 History of Present Illiness History of Present Illness: JOANA MCDUFFIE is a 70 year old female who presented the emergency room via EMS with acute altered mental status. Patient was sent to the emergency room by her pain management provider for altered mental status (confusion) observed during her office visit today. At the time of my evaluation the patient is very paranoid and confused and is this unable to provide input into her medical history. In the emergency room patient was noted to be lethargic, confused, experiencing generalized weakness and appeared clinically cachectic and dehydrated. No obvious source of the patient's acute mental status change was identified and she was subsequently admitted to the hospital, on observation status, for further evaluation and treatment. Hospital Course Hospital Course: Uncomplicated hospital course. After 48 hours with aggressive hydration the patient is feeling much better. She still feels weak but I explained that that has a lot to do with her low body mass and lack of activity. Physical Exam Vital Signs: Temp Pulse Resp BP Pulse Ox 98.4 F 63 18 104/50 L 100 06/17/20 08:03 06/17/20 08:03 06/17/20 08:03 06/17/20 08:03 06/17/20 08:03 Intake & Output 06/16/20 06/17/20 06/18/20 06:59 06:59 06:59 Intake Total 1999 520 Balance 1999 520 Weight 39.7 kg 39 kg General appearance: PRESENT: no acute distress, cooperative Respiratory exam: PRESENT: clear to auscultation ivan, symmetrical, unlabored. ABSENT: rales, rhonchi, tachypnea, wheezes Cardiovascular exam: PRESENT: RRR, +S1, +S2 GI/Abdominal exam: PRESENT: normal bowel sounds, soft. ABSENT: tenderness Musculoskeletal exam: PRESENT: other - Decreased muscle mass Neurological exam: PRESENT: alert, awake, oriented to person, oriented to place, oriented to time, oriented to situation, CN II-XII grossly intact. ABSENT: altered Results Laboratory Results: WBC 3.0 10^3/uL (4.0-10.5) L 06/16/20 06:25 RBC 3.54 10^6/uL (3.72-5.28) L 06/16/20 06:25 Hgb 12.4 g/dL (12.0-15.5) D 06/16/20 06:25 Hct 35.1 % (36.0-47.0) L 06/16/20 06:25 MCV 99 fl (80-97) H 06/16/20 06:25 MCH 35.0 pg (27.0-33.4) H 06/16/20 06:25 MCHC 35.3 g/dL (32.0-36.0) 06/16/20 06:25 RDW 12.6 % (11.5-14.0) 06/16/20 06:25 Plt Count 159 10^3/uL (150-450) 06/16/20 06:25 Lymph % (Auto) 20.1 % (13-45) 06/15/20 17:37 [place] % (Auto) 17.2 % (3-13) H 06/15/20 17:37 Eos % (Auto) 0.2 % (0-6) 06/15/20 17:37 Baso % (Auto) 0.7 % (0-2) 06/15/20 17:37 Absolute Neuts (auto) 2.2 10^3/uL (1.7-8.2) 06/15/20 17:37 Absolute Lymphs (auto) 0.7 10^3/uL (0.5-4.7) 06/15/20 17:37 Absolute Monos (auto) 0.6 10^3/uL (0.1-1.4) 06/15/20 17:37 Absolute Eos (auto) 0.0 10^3/uL (0.0-0.6) 06/15/20 17:37 Absolute Basos (auto) 0.0 10^3/uL (0.0-0.2) 06/15/20 17:37 Seg Neutrophils % 61.8 % (42-78) 06/15/20 17:37 Carbonic Acid 0.92 mmol/L (1.05-1.35) L 06/15/20 21:50 HCO3/H2CO3 Ratio 13:1 06/15/20 21:50 ABG pH 7.24 (7.35-7.45) L 06/15/20 21:50 ABG pCO2 30.6 mmHg (35-45) L 06/15/20 21:50 ABG pO2 99.0 mmHg (80-100) 06/15/20 21:50 ABG HCO3 12.7 mmol/L (20-24) L 06/15/20 21:50 ABG Total CO2 13.6 mmol/L (21-25) L 06/15/20 21:50 ABG O2 Saturation 96.5 % (94-98) 06/15/20 21:50 ABG Base Excess -13.5 mmol/L 06/15/20 21:50 FiO2 ROOM AIR 06/15/20 21:50 Sodium 143.0 mmol/L (137-145) 06/16/20 06:25 Potassium 4.0 mmol/L (3.6-5.0) 06/16/20 06:25 Chloride 112 mmol/L (98-107) H 06/16/20 06:25 Carbon Dioxide 22 mmol/L (22-30) D 06/16/20 06:25 Anion Gap 9 (5-19) 06/16/20 06:25 BUN 13 mg/dL (7-20) 06/16/20 06:25 Creatinine 0.56 mg/dL (0.52-1.25) 06/16/20 06:25 Est GFR ( Amer) > 60 (>60) 06/16/20 06:25 Est GFR (MDRD) Non-Af > 60 (>60) 06/16/20 06:25 Glucose 159 mg/dL (75-110) H 06/16/20 06:25 Calcium 9.3 mg/dL (8.4-10.2) 06/16/20 06:25 Phosphorus 2.1 mg/dL (2.5-4.5) L 06/16/20 06:25 Magnesium 1.9 mg/dL (1.6-2.3) 06/16/20 06:25 Total Bilirubin 1.1 mg/dL (0.2-1.3) 06/15/20 17:37 Direct Bilirubin 0.3 mg/dL (0.0-0.4) 06/15/20 17:37 Neonat Total Bilirubin Not Reportable 06/15/20 17:37 Neonat Direct Bilirubin Not Reportable 06/15/20 17:37 Neonat Indirect Bili Not Reportable 06/15/20 17:37 AST 37 U/L (14-36) H 06/15/20 17:37 ALT 28 U/L (<35) 06/15/20 17:37 Alkaline Phosphatase 51 U/L (38-126) 06/15/20 17:37 Creatine Kinase 148 U/L (30-135) H 06/16/20 12:50 CK-MB (CK-2) 3.29 ng/mL (<4.55) 06/16/20 12:50 Troponin I < 0.012 ng/mL 06/16/20 12:50 Total Protein 8.1 g/dL (6.3-8.2) 06/15/20 17:37 Albumin 5.2 g/dL (3.5-5.0) H 06/15/20 17:37 TSH 1.32 uIU/mL (0.47-4.68) 06/16/20 06:25 Urine Color YELLOW 06/15/20 18:48 Urine Appearance SLIGHTLY-CLOUDY 06/15/20 18:48 Urine pH 5.0 (5.0-9.0) 06/15/20 18:48 Ur Specific [place] 1.023 06/15/20 18:48 Urine Protein 100 mg/dL (NEGATIVE) H 06/15/20 18:48 Urine Glucose (UA) NEGATIVE mg/dL (NEGATIVE) 06/15/20 18:48 Urine Ketones 80 mg/dL (NEGATIVE) H 06/15/20 18:48 Urine Blood SMALL (NEGATIVE) H 06/15/20 18:48 Urine Nitrite (Reflex) NEGATIVE (NEGATIVE) 06/15/20 18:48 Urine Bilirubin NEGATIVE (NEGATIVE) 06/15/20 18:48 Urine Urobilinogen NEGATIVE mg/dL (<2.0) 06/15/20 18:48 Leukocyte Esterase Rfl MODERATE (NEGATIVE) H 06/15/20 18:48 Urine RBC (Auto) 1 /HPF 06/15/20 18:48 U Hyaline Cast (Auto) 12 /LPF 06/15/20 18:48 Urine WBC (Reflex) 16 /HPF 06/15/20 18:48 Squamous Epi Cells Auto 2 /HPF 06/15/20 18:48 Urine Mucus (Auto) OCC /LPF 06/15/20 18:48 Urine Ascorbic Acid NEGATIVE (NEGATIVE) 06/15/20 18:48 06/15/20 06/15/20 06/16/20 17:37 21:23 06:25 CK-MB (CK-2) 2.99 3.00 Troponin I < 0.012 < 0.012 < 0.012 06/16/20 12:50 CK-MB (CK-2) 3.29 Troponin I < 0.012 Impressions: Head CT 06/15/20 00:00 IMPRESSION: No acute intracranial hemorrhage, mass, or evidence of acute territorial infarct. There is intracranial atherosclerosis. EVIDENCE OF ACUTE STROKE: NO. Chest X-Ray 06/15/20 17:01 IMPRESSION: Chronic lung changes. Cannot exclude 2 right upper lobe pulmonary nodules. Recommend CT scan with contrast. Plan Health Concerns: Malnutrition with a history of malignancy. Plan of Treatment: The patient needs to drink more water. She also needs protein supplements. We discussed multiple different protein sources. See above. We also discussed appetite stimulants. At this point she wants to try and slowly improve her diet . She might benefit from drug safety data management specialist/dietitian as an outpatient Goals: Maintain adequate hydration and try to gain weight and strength Time Spent: Greater than 30 Minutes Stroke Is this a Stroke Patient?: No Acute Heart Failure - Is this a Heart Failure Patient?: No
[2020-06-17 18:30] VITALS: BP 121/75
== END 2020-06-17 18:50 | disposition home or self-care (01) ==
LOC: ER 16:36 → EH 20:27 → 4S 21:34
PROVIDERS: ADMIT Emergency Medicine; ATTEND Hospitalist
DX: G93.40 Encephalopathy, unspecified (principal); D72.819 Decreased white blood cell count, unspecified; E44.0 Moderate protein-calorie malnutrition; R64 Cachexia; R00.0 Tachycardia, unspecified; E86.0 Dehydration; G89.29 Other chronic pain; M54.5 Low back pain; Z92.21 Personal history of antineoplastic chemotherapy; Z85.830 Personal history of malignant neoplasm of bone; Z79.899 Other long term (current) drug therapy
CPT/HCPCS: 93005; 99285; 96361; 96374; 36415 ×2; 87086; 82553 ×2; 82803; 82550 ×2; 83735; 84100; 84443; 85025; 85027; 80048; 80053; 81001; 84484 ×2; 71045; 70450; 93010; 36600; G0378 ×4; A9270 ×3; J2270 ×2; J7121 ×2; J7030; J7120